=== PATIENT | female | born 1930 | race Caucasian/White ===

== ENCOUNTER 2016-07-26 22:02 | Emergency (ER) | payer MEDICARE ==
[2016-07-26 22:32] LABS: Hematocrit 32 % (35-47); Hemoglobin 10.3 g/dl (12.0-16.0); Mean Corpuscular HGB Conc 33 g/dl (31-36); Mean Corpuscular Hemoglobin 29 pg (27-31); Mean Corpuscular Volume 90 fL (80-97); Mean Platelet Volume 9 um3 (7.4-10.4); Red Blood Count 3.52 10^6/ul (4.0-5.4); Red Cell Distribution Width 13 % (10.5-15); White Blood Count 11.9 10^3/ul (3.5-10.8)
--- NOTE | 2016-07-26 22:49 | RAD ---
INDICATION: Pain and swelling. COMPARISON: None TECHNIQUE: Duplex interrogation of the Lowerextremity was performed. FINDINGS: Deep veins: The common femoral, great saphenous, profunda femoris, proximal, mid, and distal deep femoral, popliteal, posterior tibial, and peroneal veins are patent. There is normal compressibility, augmentation, and phasic flow. Superficial veins: There are no findings of superficial thrombophlebitis. Popliteal fossa:There is no evidence of a popliteal cyst. Soft tissues:There are no soft tissue abnormalities. IMPRESSION: Normal examination. No evidence of deep venous thrombosis
[2016-07-26 23:03] LABS: BUN/Creatinine Ratio 21.6 (8-20); Calcium 8.5 mg/dL (8.6-10.3); EGFR African American 78.5 (>60); EGFR Non-African American 61.1 (>60); Potassium 3.8 mmol/L (3.5-5.0)
--- NOTE | 2016-07-26 23:25 | ED ---
mitchell Johnson Timothy, scribed for Dany Maher MD on 07/26/16 at 2235 . Lower Extremity - HPI Summary HPI Summary: Lorenza Mccray is an 86 yo female presenting to [facility] with 9/10 acute on chronic RLE pain, edema, and bruising worse since today. Her family present in room states they were sent here by her doctor for rule out of DVT. Her MHx includes CAD, CABG, HLD, HTN, CVA, stenosis, TIA, bronchitis, GERD, giatal hernia, hysterectomy, fibromyalgia, arthritis, tendonitis, depression, anxiety. - History of Current Complaint Stated Complaint: RIGHT LEG INJURY Time Seen by Provider: 07/26/16 22:07 Hx Obtained From: Patient, Family/Voice And Data Technician Mechanism Of Injury: Unknown Onset/Duration: Hours Severity Initially: Moderate Severity Currently: Moderate Pain Intensity: 9 Pain Scale Used: 0-10 Numeric Timing: Constant Location: Is Discrete @ - RLE Associated Signs And Symptoms: Positive: Swelling, Bruising - Allergies/Home Medications Allergies/Adverse Reactions: Allergies Allergy/AdvReac Type Severity Reaction Status Date / Time Ibuprofen Allergy Severe Hallucinati Verified 07/26/16 22:19 ons Prochlorperazine Allergy Severe See Comment Verified 07/26/16 22:19 [From Compazine] Ciprofloxacin [From Cipro] Allergy Intermediate Vomiting Verified 07/26/16 22:19 Fluoxetine [From Prozac] Allergy Intermediate See Comment Verified 07/26/16 22: 19 Meperidine [From Demerol HCl] Allergy Intermediate Vomiting Verified 07/26/16 22 :19 Penicillin V Allergy Intermediate Anaphylatic Verified 07/26/16 22:19 [From Penicillin VK Shock Potassium] Morphine Allergy Altered Verified 07/26/16 22:19 Mental Status PMH/Surg Hx/FS Hx/Imm Hx Cardiovascular History: Reports: Hx Angina, Hx Coronary Artery Disease, Hx Hypercholesterolemia, Hx Hypertension, Other Cardiovascular Problems/Disorders - Bypass surgery 17 years ago, heart cath prior, hx HTN Denies: Hx Pacemaker/ICD Respiratory History: Denies: Other Respiratory Problems/Disorders GI History: Reports: Hx Gastroesophageal Reflux Disease, Hx Hiatal Hernia, Other GI Disorders - Hx hiatal hernia Musculoskeletal History: Reports: Hx Arthritis, Hx Back Problems, Hx Fibromyalgia, Hx Orthopedic Injury - left wrist and elbow, Hx Tendonitis, Other Musculoskeletal History - fibromyalgia, spinal stenosis, sciatica Sensory History: Reports: Hx Cataracts - ANTHONY, Hx Contacts or Glasses - reading, Other Sensory Impairments Denies: Hx Hearing Aid Opthamlomology History: Reports: Hx Cataracts - ANTHONY, Hx Contacts or Glasses - reading, Other Sensory Impairments Neurological History: Reports: Other Neuro Impairments/Disorders - , tia 09/15/12 ,syncope history Psychiatric History: Reports: Hx Anxiety, Hx Depression Denies: Hx Panic Disorder - Cancer History Cancer Type, Location and Year: melonoma surgical removal 36 yrs ago Hx Chemotherapy: No Hx Radiation Therapy: No - Surgical History Surgery Procedure, Year, and Place: appendix. double bypass. carpal tunnel. caratoid artery surgery Hx Anesthesia Reactions: Yes - nausea,seizures Infectious Disease History: No Infectious Disease History: Denies: Traveled Outside the [place] in Last 30 Days - Family History Known Family History: Positive: Cardiac Disease, Hypertension, Diabetes - late- onset, Other - No- Maligant Hypothermia. No- Anesthesia Reaction - Social History Alcohol Use: None Substance Use Type: Reports: None Smoking Status (MU): Never Smoked Tobacco Review of Systems Constitutional: Negative Eyes: Negative ENT: Negative Cardiovascular: Negative Respiratory: Negative Gastrointestinal: Negative Genitourinary: Negative Musculoskeletal: Other - RLE pain Positive: Edema - RLE Positive: Bruising - RLE Neurological: Negative Psychological: Normal All Other Systems Reviewed And Are Negative: Yes Physical Exam Triage Information Reviewed: Yes Vital Signs On Initial Exam: Initial Vitals Temp Pulse Resp BP Pulse Ox 98.5 F 76 18 132/74 96 07/26/16 22:17 07/26/16 22:17 07/26/16 22:17 07/26/16 22:17 07/26/16 22:17 Vital Signs Reviewed: Yes Appearance: Positive: Well-Appearing, No Pain Distress Skin: Positive: Warm, Other - mild swelling rle with patchy aREAS OF ECCHYMOSIS Head/Face: Positive: Normal Head/Face Inspection Eyes: Positive: SHANIQUA ENT: Positive: Hearing grossly normal Neck: Positive: Supple Respiratory/Lung Sounds: Positive: Breath Sounds Present Cardiovascular: Positive: RRR, Leg Edema Right Abdomen Description: Positive: Nontender, Soft Bowel Sounds: Positive: Present Musculoskeletal: Positive: Strength/ROM Intact, Other - rle patchy area ecchymosis Neurological: Positive: Alert, Oriented to Person Place, Time Psychiatric: Positive: Affect/Mood Appropriate - [place] Coma Scale Coma Scale Total: 14 Diagnostics - Vital Signs Vital Signs Temp Pulse Resp BP Pulse Ox 07/26/16 22:17 98.5 F 76 18 132/74 96 - Laboratory Lab Results: Lab Results 07/26/16 07/26/16 Range/Units 22:25 22:25 WBC 11.9 H (3.5-10.8) 10^3/ul RBC 3.52 L (4.0-5.4) 10^6/ul Hgb 10.3 L (12.0-16.0) g/dl Hct 32 L (35-47) % MCV 90 (80-97) fL MCH 29 (27-31) pg MCHC 33 (31-36) g/dl RDW 13 (10.5-15) % Plt Count 140 L (150-450) 10^3/ul MPV 9 (7.4-10.4) um3 Neut % (Auto) 74.3 (38-83) % Lymph % (Auto) 14.1 L (25-47) % Hickman % (Auto) 10.2 H (1-9) % Eos % (Auto) 0.5 (0-6) % Baso % (Auto) 0.9 (0-2) % Absolute Neuts (auto) 8.9 H (1.5-7.7) 10^3/ul Absolute Lymphs (auto) 1.7 (1.0-4.8) 10^3/ul Absolute Monos (auto) 1.2 H (0-0.8) 10^3/ul Absolute Eos (auto) 0.1 (0-0.6) 10^3/ul Absolute Basos (auto) 0.1 (0-0.2) 10^3/ul Absolute Nucleated RBC 0 10^3/ul Nucleated RBC % 0 Sodium 136 (133-145) mmol/L Potassium 3.8 (3.5-5.0) mmol/L Chloride 100 L (101-111) mmol/L Carbon Dioxide 28 (22-32) mmol/L Anion Gap 8 (2-11) mmol/L BUN 19 (6-24) mg/dL Creatinine 0.88 (0.51-0.95) mg/dL Est GFR ( Amer) 78.5 (>60) Est GFR (Non-Af Amer) 61.1 (>60) BUN/Creatinine Ratio 21.6 H (8-20) Glucose 144 H (70-100) mg/dL Calcium 8.5 L (8.6-10.3) mg/dL Result Diagrams: 07/26/16 22:25 07/26/16 22:25 Lab Statement: Any lab studies that have been ordered have been reviewed, and results considered in the medical decision making process. - Ultrasound No standard instances Ultrasound Interpretation: No Acute Changes - IMPRESSION: Normal examination. No evidence of deep venous thrombosis Ultrasound Interpretation Completed By: Radiologist - RLE US Re-Evaluation - Re-Evaluation First Eval Re-Evaluation Time: 23:26 Change: Unchanged Comment: Reviewed lab and imaging studies with Pt, she is agreeable to be discharged. Lower Extremity Course/Dx - Course Assessment/Plan: Lorenza Mccray is an 86 yo female presenting to [facility] with 9/10 acute on chronic RLE pain, worse today, with edema and exxhymosis presenting for rule out of DVT. Her RLE US suggests a normal examination, with no evidence of deep venous thrombosis. After clinical examination and review of her imaging and lab studies, she will be discharged home with RLE edema with appropriate instructions. - Diagnoses Differential Diagnosis/HQI/PQRI: Positive: DVT Provider Diagnoses: Edema of right lower extremity Discharge - Discharge Plan Condition: Stable Disposition: HOME Patient Education Materials: Leg Edema (ED) Referrals: Ward Costa MD [Primary Care Provider] - 2 Days Additional Instructions: Please follow up with your primary care physician regarding your visit to the emergency department today. Return to the emergency department with any new or recurring symptoms. The documentation as recorded by the mitchell jarrett Timothy accurately reflects the service I personally performed and the decisions made by , Dany Maher MD.
[2016-07-26 23:34] VITALS: BP 137/64
== END 2016-07-27 | disposition home or self-care (01) ==
LOC: ED 22:02
DX: R60.9 Edema, unspecified (principal); K21.9 Gastro-esophageal reflux disease without esophagitis; Z88.5 Allergy status to narcotic agent; Z88.0 Allergy status to penicillin; I25.10 Atherosclerotic heart disease of native coronary artery without angina pectoris; Z95.1 Presence of aortocoronary bypass graft; I10 Essential (primary) hypertension; E78.5 Hyperlipidemia, unspecified; Z86.73 Personal history of transient ischemic attack (TIA), and cerebral infarction without residual deficits
CPT/HCPCS: 36415; 80048; 85025; 99283